=== PATIENT | female | born 1975 | race Caucasian/White ===

== ENCOUNTER 2024-05-03 09:11 | Outpatient (AMB) | payer OTHER, SELFPAY ==
[2024-05-03 09:29] VITALS: BP 111/78; PULSE 72; RESP 18; TEMP 36.6; O2SAT 98; BMI 28.0
--- NOTE | 2024-05-03 09:29 | PD.ORTHCLVIS ---
Vital signs 05/03/24 09:29 Height 1.63 m Height Method Stated Weight 74.077 kg Weight Measurement Method Standing Scale BMI 28.0 BP 111/78 Blood Pressure Source Automatic Cuff Blood Pressure Location Left Upper Arm Position Sitting Respiration 18 Pulse 72 Pulse Source Monitor Temp 97.9 F Temp Source Temporal Artery Scan Pulse Oximetry (%) 98 Oxygen Delivery Method Room Air Med/Allergies Allergies & Medications Allergies No Known Allergies Allergy (Verified 05/03/24 09:31) Medication Reconciliation meloxicam 7.5 mg tablet 7.5 mg PO QDAY #45 tabs 05/03/24 [Rx] Subjective Visit Visit for: new patient and hip (LEFT) Immunization / Flu Flu Vaccine in the Last 12 Months: No Flu Vaccine Exclusion Criteria: Refused by Patient History of Present Illness Chief complaint: LEFT HIP PAIN Date of injury / onset of symptoms: 2022 Michelle is a pleasant 48-year-old female with left hip pain. The pain is originally in the groin is been ongoing for over a year. She has tried turmeric and other holistic treatments including changes in diet. She has not had any hip injections or formal physical therapy. She has not had any lesser medications for anti-inflammatories other than Advil. The pain is starting affect her quality of life and she has reduced range of motion and has some difficulty putting on socks and shoes Personal History Occupation: [employer] Hobbies: NONE Pain Pain level (0-10): 2 Pain duration: ON AND OFF Pain location: groin and inside (medial) Pain quality: sharp and aching Pain timing: night, increases with activity and stairs Associated signs & symptoms: none Ambulatory data Ambulatory device: none Treatments Improvement with previous injections: No Improvement with PT: No Improvement with NSAIDS: no Review of Systems Review of Systems: All systems negative unless otherwise noted in HPI. Exam Exam Patient is in no acute distress and is cooperative with the examination today. Breathing is nonlabored. In no respiratory distress. Patient has no paraspinal tenderness. Spinal deformity [cannot] be appreciated. The gait of the patient is [nonantalgic] Bilateral extremities were evaluated and demonstrates sensation intact to light touch. Palpable pedal pulses are present. No significant edema is present. Bilateral knees were examined and the patient has full strength and range of motion.. The right hip was examined. Patient was able to flex to 90 degrees, adduct to 30 degrees, abduct to 40 degrees, internally rotate to 20 degrees, and externally rotate to 20 degrees. Patient has a negative logroll. Stinchfield is negative. The patient is nontender diffusely to touch. The left hip was examined. Patient was able to flex to [90] degrees,She can abduct to throw any degrees and abduct to 30 degrees. She has pain with internal rotation. She has a positive Stinchfield and logroll Assessment and Plan Problem List (1) Arthritis of left hip: Status: Acute Plan: It is very patient is a pleasant 48-year-old female with left hip pain and arthritis. She is significant arthritis on x-ray. We discussed nonoperative operative options. Given the severity of the arthritis and her age, we will start with nonoperative treatment. Will start with anti-inflammatories as well as formal physical therapy. Should she need more relief, we can try injections. We will check back with her in 2 months to see how she is doing Office Procedures GNS Level of Care Nursing/Assessment Patient Status: Initial/New Patient Nursing Assessment/Reassesment: Medication Reconciliation, Update PMH in EMR and Vital Signs Coordination of Care: Complex Care and Chronic Disease 1-5, Education Complex Pt/Fam, Consent,records obtained, informed consent, 1 Ins Authorization, Lab and Imaging orders, Results/Orders obtained and Staff clarify orders New Patient Charge New Patient Point Assignment: 1124 New Patient Point Charge: MANAGER HOSPICE Level 4 ([id number]) Past Medical History Past Medical History Have you ever been diagnosed with any of the following: Respiratory Problems Smoking: No Smoking Exposure: No
== END 2024-05-03 09:54 | disposition home or self-care (01) ==
LOC: HODSRG 09:11
PROVIDERS: PCP Physician Assistant Medical; Referring Provider Physician Assistant Medical; Supervising Provider Orthopaedic Surgery Adult Reconstructive Orthopaedic Surgery; Visit Provider Orthopaedic Surgery Adult Reconstructive Orthopaedic Surgery
DX: M16.12 Unilateral primary osteoarthritis, left hip (principal); M25.552 Pain in left hip
CPT/HCPCS: 99204; G0463